=== PATIENT | female | born 1950 | race Caucasian/White ===

== ENCOUNTER 2022-11-04 10:35 | Outpatient (CLI) | payer MEDICARE | END 2022-11-04 10:36 | disposition home or self-care (01) | LOC: CSHMAMMO 10:35 | PROVIDERS: ATTEND Physician Assistant Medical | DX: K90.0 Celiac disease (principal); R10.30 Lower abdominal pain, unspecified; R19.8 Other specified symptoms and signs involving the digestive system and abdomen; R12 Heartburn; R13.19 Other dysphagia; K57.90 Diverticulosis of intestine, part unspecified, without perforation or abscess without bleeding; M85.80 Other specified disorders of bone density and structure, unspecified site; Z86.010 Personal history of colon polyps | CPT/HCPCS: 77080 ==